=== PATIENT | male | born 1925 | race Asian ===

== ENCOUNTER 2017-04-24 10:00 | Inpatient (IN) | payer OTHER, MEDICAID ==
[~2017-04-24] VITALS: Ht 165.1 cm; Wt 66.7 kg
[2017-04-24] MEDS ORDERED: MAG HYDROX/AL HYDROX/SIMETH 30 ML UDC PO PRN (11:30)
[2017-04-24] MEDS ORDERED: LORAZEPAM 0.5 MG TABLET PO PRN (11:30)
[2017-04-24] MEDS ORDERED: MAGNESIUM HYDROXIDE 30 ML UDC PO PRN (11:30)
[2017-04-24] MEDS ORDERED: TEMAZEPAM 7.5 MG CAPSULE PO PRN (11:30)
[2017-04-24] MEDS ORDERED: ACETAMINOPHEN 325 MG TABLET PO PRN (11:30)
--- NOTE | 2017-04-24 11:30 | NUR ---
RN IN TO DO ADMIT PHOTOS.DRESSINGS REMOVED FROM BOTH ARMS LRG. SKIN TEARS ON DEMETRIA. ARMS WITH MOD. AMT. SANGUINOUS DRAINAGE.AFTER PHOTOS FRESH DRESSINGS APPLIED.WD. CONSULT TO BE ORDERED.
--- NOTE | 2017-04-24 14:00 | NUR ---
MUSIC HISTORIAN NOTE: ADMITTED 89 Y/O MALE FROM ER ON 5150 HOLD FOR GD PER 5150 HOLD PATIENT AGITATED ,YELLING THINKS HIS ROOMMATE HAS A KNIFE ,FACILITY UNABLE TO CARE FOR HIM.On 1:1 ASSESSMENT PATIENT ALERT ,ORIENTED X2 ,EASILY AGITATED ,NOT FOLLOWING DIRECTIONS NOTIFIED OF ADMISSION ,LEFT MESSAGE FOR , PACEMAKER ON LEFT CHEST .HX OF CATARACT OF RIGHT EYE ,DM ,GLAUCOMA HTN,HERNIA ,HYPERCHOLESTEREMIA ,PLURAL EFFUSION, PROSTATE AND TURP . NOTED SKIN TEAR RIGHT AND DEFT ARM ,DEMETRIA LE DISCOLORATION ,LEFT HAND DISCO;ORATION.PATIENT UNABLE TO WALK AND NEED ASSISTANCE WITH ADLS .ALL BELONGINGS CHECKED IN BY STAFF .PATIENT'S RIGHT HAND BOOK GIVEN AND EXPLAINED TO PATIENT ABLE T VERBALIZE UNDERSTANDING .PATIENT ON FALL PRECAUTION .START PATIENT ON Q15 MINUTES SAFTEY CHECK.
[2017-04-24 16:10] VITALS: BP 169/89
[2017-04-24] MEDS ORDERED: ASCO500T9 PO (16:16)
[2017-04-24] MEDS ORDERED: ASPI81TA2 PO (16:17)
[2017-04-24] MEDS ORDERED: ATOR10TA PO (16:19)
[2017-04-24] MEDS ORDERED: DIVA500T2 PO (16:26)
[2017-04-24] MEDS ORDERED: DOCU-170 PO (16:28)
[2017-04-24] MEDS ORDERED: DIVA500T7 PO (16:28)
[2017-04-24] MEDS ORDERED: FERR-58 PO (16:29)
[2017-04-24] MEDS ORDERED: METF500T4 PO (16:30)
[2017-04-24] MEDS ORDERED: QUET25TA PO (16:31)
[2017-04-24] MEDS ORDERED: METO-304 PO (16:31)
[2017-04-24] MEDS ORDERED: METO-302 PO (16:31)
[2017-04-24] MEDS ORDERED: SERT25TA PO (16:32)
[2017-04-24] MEDS ORDERED: TAMS0.4C34 PO (16:33)
[2017-04-24] MEDS ORDERED: TIMO5DRO4 EACHEYE (16:36)
[2017-04-24] MEDS ORDERED: TRAV5DRO OP (16:36)
[2017-04-24] MEDS: DIVALPROEX SODIUM 125 MG CAP.SPRINK PO SCH (17:37)
[2017-04-24] MEDS ORDERED: DEXTROSE 50%-WATER 50 ML DISP.SYRIN IV PRN (19:00)
[2017-04-24 20:03] VITALS: BP 157/83
[2017-04-24] MEDS: METOPROLOL TARTRATE 25 MG TABLET PO SCH (21:13)
[2017-04-24] MEDS: QUETIAPINE FUMARATE 25 MG TABLET PO SCH (21:13)
[2017-04-24] MEDS: LATANOPROST EYE DROP 0.005% 2.5 ML BOTTLE EACHEYE SCH (21:16)
[2017-04-24] MEDS: BLOOD SUGAR DIAGNOSTIC 1 EACH STRIP IN SCH (21:25)
[2017-04-24] MEDS: INSULIN REGULAR, HUMAN 100 UNIT/ML 3 ML VIAL SQ PRN (21:30)
--- NOTE | 2017-04-25 05:35 | NUR ---
PATIENT IN BED ALL EVENING AND NIGHT NO AGITATION NOTED MED COMPIANT B/S 190 ON A SS 3 UNITS OF INSULIN GIVEN , ENCOURAGE TO TURN AND REPOSISTION Q 2 HRS , BILATERAL ARMS WITH DRESSING FROM SKIN TEAR , WOUND CONSULT TODAY CONT TO MONITOR.
[2017-04-25] MEDS ORDERED: METFORMIN 500 MG TABLET PO SCH (06:00)
[2017-04-25 06:45] LABS: ALANINE AMINOTRANSFERASE 23 U/L (12-78); ALBUMIN 3.3 g/dL (3.4-5.0); ALKALINE PHOSPHATASE 59 U/L (46-116); ASPARTATE AMINOTRANSFERASE 24 U/L (15-37); BILIRUBIN,TOTAL 0.4 mg/dL (0.2-1.0); CALCIUM, SERUM 9.3 mg/dL (8.5-10.1); CARBON DIOXIDE 30 mmol/L (21-32); CHLORIDE 103 mmol/L (98-107); CREATININE 0.9 mg/dL (0.6-1.3); GLUCOSE 110 mg/dL (74-106); POTASSIUM 4.4 mmol/L (3.5-5.1); SODIUM SERUM 139 mmol/L (136-145); TOTAL PROTEIN, SERUM 7.5 g/dL (6.4-8.2); UREA NITROGEN, BLOOD 13 mg/dL (7-18)
[2017-04-25 06:53] LABS: CHOLESTEROL 128 mg/dL (<200); HDL CHOLESTEROL 82 mg/dL (40-60); LDL 47 mg/dL (0-99); TRIGLYCERIDES 51 mg/dL (30-150)
--- NOTE | 2017-04-25 07:15 | NUR ---
RN OPENING NOTES PT SLEEPING IN BED. EASILY AROUSABLE. AAO4. DENIES SI/AVH. INTERACTS WELL. RFA SKIN TEAR DRSG CDI. LUE SKIN DRSG CDI. MODERATE ASSIST X 1 PERSON TO CHAIR. WILL CONT TO MONITOR CLOSELY.
[2017-04-25] MEDS: BLOOD SUGAR DIAGNOSTIC 1 EACH STRIP IN SCH ×4 (07:52→21:44)
[2017-04-25 08:15] VITALS: BP 141/79
[2017-04-25] MEDS: METFORMIN 500 MG TABLET PO SCH (08:22)
[2017-04-25] MEDS: FERROUS SULFATE (325 MG) 325 MG/TAB TABLET PO SCH ×2 (08:22→17:18)
[2017-04-25] MEDS: ASCORBIC ACID 500 MG TABLET PO SCH (08:22)
[2017-04-25] MEDS: METOPROLOL TARTRATE 25 MG TABLET PO SCH ×2 (08:23→21:44)
[2017-04-25] MEDS: DIVALPROEX SODIUM 125 MG CAP.SPRINK PO SCH ×2 (08:23→17:18)
[2017-04-25] MEDS: TAMSULOSIN 0.4 MG CAP.SR.24H PO SCH (08:23)
[2017-04-25] MEDS: ATORVASTATIN 10 MG TABLET PO SCH (08:24)
[2017-04-25] MEDS: DOCUSATE SODIUM 100 MG CAPSULE PO SCH ×2 (08:24→17:18)
[2017-04-25] MEDS: ASPIRIN 81 MG TAB.CHEW PO SCH (08:24)
[2017-04-25] MEDS: QUETIAPINE FUMARATE 25 MG TABLET PO SCH ×2 (08:24→21:22)
[2017-04-25] MEDS: TIMOLOL 0.5% SOLN OPHTH 5 ML BOTTLE EACHEYE SCH ×2 (08:24→17:18)
[2017-04-25] MEDS ORDERED: SERTRALINE HCL 25 MG TABLET PO SCH (09:00)
[2017-04-25] MEDS: INSULIN REGULAR, HUMAN 100 UNIT/ML 3 ML VIAL SQ PRN ×2 (11:59→22:00)
--- NOTE | 2017-04-25 15:15 | NUR ---
DR. MORGAN GAVE AN ORDER TO CHANGE SERVICE TO DR. TOURE AND DR. TOURE IS AWARE.
[2017-04-25 15:34] VITALS: BP 114/61
--- NOTE | 2017-04-25 16:04 | NUR ---
Initial Discharge Note: Patient resides at [facility].[address] [place] [address]. ([phone]). forest and conservation worker spoke to patient's daughter Kvng Karimi ([phone]) who confirmed that patient resides in the Assisted Living facility. forest and conservation worker spoke to Peral from the facility who confirmed that patient can return to the facility upon discharge. forest and conservation worker will help form a safe and proper discharge.
--- NOTE | 2017-04-25 17:56 | NUR ---
RN CLOSING NOTES PT IN CARDIAC CHAIR EATING DINNER IN ACTIVITY ROOM. EASILY AROUSABLE. AAO4. CHANGED ARM DRSGS. DENIES SI/AVH. INTERACTS WELL. RFA SKIN TEAR DRSG CDI. LUE SKIN DRSG CDI. MODERATE ASSIST X 2 PERSON TO CHAIR. WILL ENDORSE TO SHANTE AMES.
--- NOTE | 2017-04-25 19:34 | NUR ---
GPS RN NOTES: PATIENT ALERT AND ORIENTED X2. PATIENT COMPLAINED OF BEING CONSTIPATED. ABDOMEN ASSESSMENT DONE. MILK OF MAGNESIA 30ML PO GIVEN ORDERED AND EFFECTIVE AFTER ONE HOUR OF ADMINISTRATION. PATIENT HAD BOWEL MOVEMENT X1, SOFT IN CONSISTENCY IN SMALL AMOUNT. GOOD PERINEAL CARE PROVIDED.
[2017-04-25 20:00] VITALS: BP 141/62
[2017-04-25] MEDS: LATANOPROST EYE DROP 0.005% 2.5 ML BOTTLE EACHEYE SCH (21:23)
--- NOTE | 2017-04-25 21:31 | NUR ---
GPS RN NOTES: PATIENT A/O X2. PATIENT COMPLAINED OF INABILITY TO SLEEP. V/S STABLE. RESTORIL 7.5MG PO GIVEN ORDERED., TOLERATED-WELL. WILL CONTINUE TO MONITOR Q15 MINS FOR BEHAVIOR AND SAFETY AND MONITOR FOR HOURS OF SLEEP.
[2017-04-26] MEDS: METFORMIN 500 MG TABLET PO SCH (06:02)
[2017-04-26] MEDS: BLOOD SUGAR DIAGNOSTIC 1 EACH STRIP IN SCH ×4 (07:44→22:00)
[2017-04-26] MEDS: TAMSULOSIN 0.4 MG CAP.SR.24H PO SCH (08:07)
[2017-04-26] MEDS: ASCORBIC ACID 500 MG TABLET PO SCH (08:08)
[2017-04-26] MEDS: DOCUSATE SODIUM 100 MG CAPSULE PO SCH ×2 (08:08→17:10)
[2017-04-26] MEDS: ATORVASTATIN 10 MG TABLET PO SCH (08:08)
[2017-04-26] MEDS: METOPROLOL TARTRATE 25 MG TABLET PO SCH ×2 (08:08→20:36)
[2017-04-26] MEDS: QUETIAPINE FUMARATE 25 MG TABLET PO SCH ×2 (08:08→20:35)
[2017-04-26] MEDS: FERROUS SULFATE (325 MG) 325 MG/TAB TABLET PO SCH ×2 (08:08→17:11)
[2017-04-26] MEDS: ASPIRIN 81 MG TAB.CHEW PO SCH (08:08)
[2017-04-26] MEDS: DIVALPROEX SODIUM 125 MG CAP.SPRINK PO SCH ×2 (08:09→17:11)
[2017-04-26 08:25] VITALS: BP 143/74
[2017-04-26] MEDS: TIMOLOL 0.5% SOLN OPHTH 5 ML BOTTLE EACHEYE SCH ×2 (08:29→17:11)
--- NOTE | 2017-04-26 10:57 | NUR ---
WOUND CARE CONSULT: PT PRESENTS WITH INCONTINENCE OF STOOL. PT PREVIOUSLY USED URINAL SEVERAL TIMES PER NURSING STAFF. PT ALSO NOTED TO HAVE STERI STRIPS TO BILATERAL ARM SKIN TEARS. PT HAS VERY FRAGILE SKIN. SACRAL SCARRING NOTED. ALL SKIN PROTECTION RECOMMENDATIONS DISCUSSED WITH NURSING STAFF. WILL SEE PRN. MARCUS IN AGREEMENT WITH PLAN OF CARE. Addendum: 04/26/17 at 1059 by JAUN GREGG WNDNU Amended: Links added.
[2017-04-26] MEDS ORDERED: Z GUARD REMEDY 2 OZ OINT TP PRN (11:00)
[2017-04-26] MEDS: Z GUARD REMEDY 2 OZ OINT TP SCH (11:14)
--- NOTE | 2017-04-26 11:25 | NUR ---
duralumin metalworker faxed inquiry to [facility] (fax: [phone]/ phone: [phone]) [address] [place] [address]. duralumin metalworker will follow-up. Addendum: 04/26/17 at 1134 by MELANY MARTÍNEZ Wrong Patient- (Did not fax [facility])
--- NOTE | 2017-04-26 11:34 | NUR ---
trim line worker faxed clinicals (Psych H&P, Med H&P, psych progress notes, med list, face sheet) to Noah from [place] (fax: [phone]/ ). trim line worker will follow-up.
[2017-04-26] MEDS: INSULIN REGULAR, HUMAN 100 UNIT/ML 3 ML VIAL SQ PRN ×2 (12:18→22:10)
--- NOTE | 2017-04-26 14:43 | NUR ---
UR Update: MAURICIO received a voicemail from Urmila from [place], . In the voicemail, Urmila stated that patient "does not meet criteria" for authorization. Urmila asked MAURICIO to call her back. MAURICIO called Urmila and left a voicemail for her with direct contact information.
--- NOTE | 2017-04-26 14:44 | NUR ---
MAURICIO informed pt's psychiatrist, Dr. Patel that the insurance does not wish to authorize the hospital stay. Dr. Patel stated that he would like to evaluate the patient on Saturday before making a decision. MAURICIO then called the pt's board and care [facility].[address] [place] [address]. ([phone]) and spoke to Perla who stated that patient is welcome back any time. Perla informed MAURICIO that [facility] does not provide transportation and MAURICIO stated that the hospital would see to it. MAURICIO then called pt's daughter, Dr. Swanson [phone] and updated her. She was understanding of the situation and stated that she will dis-enroll her father from the insurance so that it is more beneficial in the future. She was in agreement with father returning to the board and care.
[2017-04-26 16:00] VITALS: BP 125/64
--- NOTE | 2017-04-26 16:52 | NUR ---
MAURICIO heard back from pt's board and care [facility] [address] [place] [address]. ([phone]) who stated that they cannot take patient back if he is exhibited symptoms of paranoia and displaying aggressive behavior. Perla stated that if the patient is deemed "compliant," meaning paranoia is absent then he may come back. She also suggest speaking with the family about a private room. MAURICIO informed Dr. Patel of this. MAURICIO will follow up on Saturday.
[2017-04-26 20:00] VITALS: BP 143/74
[2017-04-26] MEDS: LATANOPROST EYE DROP 0.005% 2.5 ML BOTTLE EACHEYE SCH (21:14)
[2017-04-27] MEDS: METFORMIN 500 MG TABLET PO SCH (06:24)
[2017-04-27 07:36] VITALS: BP 149/74
[2017-04-27] MEDS: BLOOD SUGAR DIAGNOSTIC 1 EACH STRIP IN SCH ×4 (08:17→21:41)
[2017-04-27] MEDS: QUETIAPINE FUMARATE 25 MG TABLET PO SCH ×2 (08:22→20:11)
[2017-04-27] MEDS: TAMSULOSIN 0.4 MG CAP.SR.24H PO SCH (08:22)
[2017-04-27] MEDS: ATORVASTATIN 10 MG TABLET PO SCH (08:22)
[2017-04-27] MEDS: ASCORBIC ACID 500 MG TABLET PO SCH (08:22)
[2017-04-27] MEDS: DOCUSATE SODIUM 100 MG CAPSULE PO SCH ×2 (08:23→16:52)
[2017-04-27] MEDS: DIVALPROEX SODIUM 125 MG CAP.SPRINK PO SCH ×2 (08:23→16:52)
[2017-04-27] MEDS: FERROUS SULFATE (325 MG) 325 MG/TAB TABLET PO SCH ×2 (08:23→16:52)
[2017-04-27] MEDS: METOPROLOL TARTRATE 25 MG TABLET PO SCH ×2 (08:23→20:12)
[2017-04-27 08:30] LABS: VALPROIC ACID 42 ug/mL (50-100)
[2017-04-27 08:43] LABS: ALANINE AMINOTRANSFERASE 23 U/L (12-78); ASPARTATE AMINOTRANSFERASE 21 U/L (15-37)
[2017-04-27] MEDS: ASPIRIN 81 MG TAB.CHEW PO SCH (09:12)
[2017-04-27] MEDS: Z GUARD REMEDY 2 OZ OINT TP SCH (09:13)
[2017-04-27] MEDS: TIMOLOL 0.5% SOLN OPHTH 5 ML BOTTLE EACHEYE SCH ×2 (09:13→16:53)
[2017-04-27 16:00] VITALS: BP 121/64
[2017-04-27] MEDS: INSULIN REGULAR, HUMAN 100 UNIT/ML 3 ML VIAL SQ PRN ×2 (18:27→21:36)
[2017-04-27 20:00] VITALS: BP 122/68
[2017-04-27] MEDS: LATANOPROST EYE DROP 0.005% 2.5 ML BOTTLE EACHEYE SCH (21:41)
[2017-04-28] MEDS: METFORMIN 500 MG TABLET PO SCH (06:10)
[2017-04-28 08:06] VITALS: BP 129/72
[2017-04-28] MEDS: BLOOD SUGAR DIAGNOSTIC 1 EACH STRIP IN SCH ×4 (08:13→21:54)
[2017-04-28] MEDS: ASCORBIC ACID 500 MG TABLET PO SCH (09:32)
[2017-04-28] MEDS: TAMSULOSIN 0.4 MG CAP.SR.24H PO SCH (09:32)
[2017-04-28] MEDS: ASPIRIN 81 MG TAB.CHEW PO SCH (09:32)
[2017-04-28] MEDS: FERROUS SULFATE (325 MG) 325 MG/TAB TABLET PO SCH ×2 (09:32→16:42)
[2017-04-28] MEDS: ATORVASTATIN 10 MG TABLET PO SCH (09:32)
[2017-04-28] MEDS: DIVALPROEX SODIUM 125 MG CAP.SPRINK PO SCH ×2 (09:32→16:42)
[2017-04-28] MEDS: DOCUSATE SODIUM 100 MG CAPSULE PO SCH ×2 (09:32→16:42)
[2017-04-28] MEDS: QUETIAPINE FUMARATE 25 MG TABLET PO SCH ×2 (09:33→21:55)
[2017-04-28] MEDS: METOPROLOL TARTRATE 25 MG TABLET PO SCH ×2 (09:33→21:00)
[2017-04-28] MEDS: Z GUARD REMEDY 2 OZ OINT TP SCH (09:34)
[2017-04-28] MEDS: TIMOLOL 0.5% SOLN OPHTH 5 ML BOTTLE EACHEYE SCH ×2 (09:34→16:43)
[2017-04-28 16:00] VITALS: BP 114/58
[2017-04-28 19:35] VITALS: BP 112/60
[2017-04-28] MEDS: INSULIN REGULAR, HUMAN 100 UNIT/ML 3 ML VIAL SQ PRN (21:55)
[2017-04-28] MEDS: LATANOPROST EYE DROP 0.005% 2.5 ML BOTTLE EACHEYE SCH (21:56)
[2017-04-29] MEDS: METFORMIN 500 MG TABLET PO SCH (06:29)
[2017-04-29 08:07] VITALS: BP 131/74
[2017-04-29] MEDS: TAMSULOSIN 0.4 MG CAP.SR.24H PO SCH (08:34)
[2017-04-29] MEDS: DIVALPROEX SODIUM 125 MG CAP.SPRINK PO SCH ×2 (08:34→17:13)
[2017-04-29] MEDS: FERROUS SULFATE (325 MG) 325 MG/TAB TABLET PO SCH ×2 (08:35→17:13)
[2017-04-29] MEDS: ATORVASTATIN 10 MG TABLET PO SCH (08:35)
[2017-04-29] MEDS: ASCORBIC ACID 500 MG TABLET PO SCH (08:35)
[2017-04-29] MEDS: DOCUSATE SODIUM 100 MG CAPSULE PO SCH ×2 (08:35→17:13)
[2017-04-29] MEDS: ASPIRIN 81 MG TAB.CHEW PO SCH (08:35)
[2017-04-29] MEDS: QUETIAPINE FUMARATE 25 MG TABLET PO SCH (08:35)
[2017-04-29] MEDS: METOPROLOL TARTRATE 25 MG TABLET PO SCH (08:36)
[2017-04-29] MEDS: Z GUARD REMEDY 2 OZ OINT TP SCH (08:36)
[2017-04-29] MEDS: BLOOD SUGAR DIAGNOSTIC 1 EACH STRIP IN SCH ×3 (08:36→17:14)
[2017-04-29] MEDS: TIMOLOL 0.5% SOLN OPHTH 5 ML BOTTLE EACHEYE SCH ×2 (08:41→17:15)
--- NOTE | 2017-04-29 08:43 | NUR ---
UR Update: MAURICIO faxed over updated clinicals to Noah from [place] (fax: [phone]/ ).
--- NOTE | 2017-04-29 10:27 | NUR ---
Discharge Planning: SW contacted patient's psychiatrist, Dr. Patel, via text message to inquire about discharge plan. SW will follow up.
--- NOTE | 2017-04-29 11:07 | NUR ---
Discharge Planning: SW left a voicemail for pt's daughter Kvng Karimi ([phone]) regarding patient's placement. SW will follow up.
--- NOTE | 2017-04-29 11:14 | NUR ---
UR Update: MAURICIO heard from Dr. Patel who stated that he personally spoke to the insurance and was informed that patient will be approved. Dr. Patel advised MAURICIO to check with intake. MAURICIO called GG from intake, who confirmed this information and stated that she was waiting on the authorization number.
[2017-04-29 15:44] VITALS: BP 116/54
--- NOTE | 2017-04-29 16:06 | NUR ---
Discharge Note: Patient will be discharged to [facility].[address] [place] [address] ([phone]) via transportation arranged by neonatal social worker through [facility]. Patient will be provided with a wheelchair and escorted straight into the facility. Patients daughter, Kvng Karimi ([phone]) is aware and in agreement with discharge. Patient will be seen by his [place] [address] [phone] on Saturday05/02/17 at 10:30am. Business Functional Analyst has been in contact with Reyna from [facility] to secure after-care for patient. Reyna stated that the insurance will be arranging a sitter for the patient at the facility. production worker will also attempt to set up home health services for the patient. MAURICIO waiting to obtain home health order from medical doctor. Addendum: 04/29/17 at 1612 by MALLORIE MARTÍNEZ Please note that the Tuesday 05/01 appointment was meant for different patient. This patient has an appointment scheduled with Dr. Patel on June 13 at 2pm. MAURICIO called the doctor's office and spoke to receptionists who stated that the Dr is booked until June. No earlier appointment time was available. MAURICIO will follow up with Dr. Patel.
[2017-04-29] MEDS: INSULIN REGULAR, HUMAN 100 UNIT/ML 3 ML VIAL SQ PRN (17:33)
--- NOTE | 2017-04-29 19:10 | NUR ---
GPS/RN PATIENT CLEARED FOR DISCHARGE TO [facility] BY DR TOURE AND DR VANG. PRESCRIPTIONS INCLUDED IN PACKET, DISCHARGE PACKET, AFTERCARE PLAN AND MEDICATIONS EXPLAINED TO PATIENT, VERBALIZED UNDERSTANDING. BELONGINGS RETURNED, D/C PHOTOS TAKEN THIS A.M., HOME HEALTH ORDERED, PATIENT DENIES SI/HI/AH UPON DISCHARGE, PSYCHIATRIC TREATMENT PLANS MET, LEFT UNIT CALM, COOPERATIVE NO DISTRESS WITH [employer] AND ROUTE SALES TRAINEE AT SIDE.
== END 2017-04-29 19:15 | DRG 885 ==
LOC: GPS 10:54
PROVIDERS: ADMIT Psychiatry & Neurology Psychiatry; ATTEND Internal Medicine
DX: F29 Unspecified psychosis not due to a substance or known physiological condition (principal); F03.91 Unspecified dementia, unspecified severity, with behavioral disturbance; E11.9 Type 2 diabetes mellitus without complications; E78.5 Hyperlipidemia, unspecified; H40.9 Unspecified glaucoma; I10 Essential (primary) hypertension; N40.0 Benign prostatic hyperplasia without lower urinary tract symptoms; Z79.899 Other long term (current) drug therapy; Z87.891 Personal history of nicotine dependence; Z95.0 Presence of cardiac pacemaker; Z79.84 Long term (current) use of oral hypoglycemic drugs; F10.21 Alcohol dependence, in remission; Z73.6 Limitation of activities due to disability; S41.112A Laceration without foreign body of left upper arm, initial encounter; S61.511A Laceration without foreign body of right wrist, initial encounter; X58.XXXA Exposure to other specified factors, initial encounter; Y93.9 Activity, unspecified; Y92.89 Other specified places as the place of occurrence of the external cause
CPT/HCPCS: 36415; 80053-TC; 80061-TC; 80164-TC; 82962-TC; 84450-TC; 84460-TC; 97116-TC; 97530-TC; A6402; J1815